=== PATIENT | female | born 1965 | race Caucasian/White ===

== ENCOUNTER → 2024-08-23 10:07 | Outpatient (REF) | payer BC, SELFPAY | LOC: HWWDC 10:07 | PROVIDERS: ATTENDING PHYSICIAN Internal Medicine; REFERRING PHYSICIAN Nurse Practitioner Adult Health | DX: Z01.419 Encounter for gynecological examination (general) (routine) without abnormal findings (principal); Z12.31 Encounter for screening mammogram for malignant neoplasm of breast; Z78.0 Asymptomatic menopausal state | CPT/HCPCS: 77063; 77067; 77080 ==